=== PATIENT | female | born 1955 | race Caucasian/White ===

== ENCOUNTER 2017-08-18 21:23 | Inpatient (IN) | payer OTHER ==
[~2017-08-18] VITALS: Ht 165.1 cm; Wt 93.1 kg
[~2017-08-18 21:23] MED LIST: CARDIZEM CD180 MG PO; IMDUR30 MG PO; LIPITOR20 MG PO; NEXIUM40 MG PO; TENORMIN50 MG PO; VESICARE10 MG PO; ZESTORETIC 20-1 EAC2 PO
[2017-08-19 07:56] VITALS: BP 121/55
[2017-08-19 13:45] VITALS: BP 109/52
[2017-08-19 15:34] VITALS: BP 112/55
[2017-08-19 17:38] VITALS: BP 107/52
[2017-08-19 19:51] VITALS: BP 106/58
[2017-08-20 00:10] VITALS: BP 113/55
[2017-08-20 04:23] VITALS: BP 132/60
[2017-08-20 05:39] LABS: HEMATOCRIT 34.1 % (36.0-46.0)
[2017-08-20 08:06] VITALS: BP 129/76
[2017-08-20 12:17] VITALS: BP 127/69
[2017-08-20 15:49] VITALS: BP 135/65
[2017-08-20 19:39] VITALS: BP 109/54
[2017-08-21 00:09] VITALS: BP 118/63
[2017-08-21 04:10] VITALS: BP 121/57
[2017-08-21 05:54] LABS: HEMATOCRIT 31.7 % (36.0-46.0); HEMOGLOBIN 10.2 G/DL (11.9-15.5)
[2017-08-21 08:04] VITALS: BP 109/66
[2017-08-21] MEDS ORDERED: BENADRYL25 MG PO (09:11)
[2017-08-21] MEDS ORDERED: TYLENOL REGULA325 MG PO (09:12)
[2017-08-21] MEDS ORDERED: SENNA PLUS TAB1 EACH PO (09:12)
[2017-08-21] MEDS ORDERED: HYDROMORPHONE HC2 MG PO (09:13)
[2017-08-21] MEDS ORDERED: ELIQUIS2.5 MG PO (09:13)
[2017-08-21] MEDS ORDERED: CELECOXIB200 MG PO (09:13)
[2017-08-21 12:05] VITALS: BP 119/68
== END 2017-08-21 14:01 | DRG 470 ==
LOC: ENRESERV 21:23 → 2SOUTH 08-19 06:39 → 3WEST 08-19 13:34
PROVIDERS: Orthopaedic Surgery
PROC: 0SRC0J9 Replacement of Right Knee Joint with Synthetic Substitute, Cemented, Open Approach (ICD-10-PCS; principal; 2017-08-19)
PROC: 3E0T3BZ Introduction of Anesthetic Agent into Peripheral Nerves and Plexi, Percutaneous Approach (ICD-10-PCS; 2017-08-19)
DX: M17.11 Unilateral primary osteoarthritis, right knee (principal); M22.41 Chondromalacia patellae, right knee; J44.9 Chronic obstructive pulmonary disease, unspecified; I10 Essential (primary) hypertension; K21.9 Gastro-esophageal reflux disease without esophagitis; Z88.0 Allergy status to penicillin; Z88.5 Allergy status to narcotic agent; Z88.1 Allergy status to other antibiotic agents; Z91.040 Latex allergy status; Z87.891 Personal history of nicotine dependence
CPT/HCPCS: 85014; 85018; 93971; 94799; C1713; J0131; J0330; J1100; J1170; J1885; J2250; J2405; J2710; J2795; J3010; J7050; Q0175